=== PATIENT | male | born 1970 | race Caucasian/White ===

== ENCOUNTER 2018-10-09 14:20 | Observation (INO) ==
[2018-10-09] MEDS ORDERED: MORPHINE IV ONE ×2 (14:40→17:33)
[2018-10-09] MEDS ORDERED: ZOFRAN IV ONE (14:40)
[2018-10-09] MEDS ORDERED: ASPIRIN PO ONE ×2 (14:40→14:41)
[2018-10-09] MEDS ORDERED: NITROGLYCERIN TOP ONE (14:40)
[2018-10-09 14:58] LABS: BASO# 0.04 X1000 (0.0-0.2); BASO% 0.5 % (0.0-0.8); EOS# 0.36 X1000 (0.0-0.7); EOS% 4.7 % (0.0-10.0); HEMATOCRIT 44.8 % (42.0-52.0); HEMOGLOBIN 15.8 g/dL (14.0-18.0); IMM GRAN# 0.01 X1000 (0.0-0.04); IMM GRAN% 0.1 % (0.0-0.5); LYMPH# 1.99 X1000 (1.2-3.4); LYMPH% 25.9 % (20.5-51.1); MCH 28.5 PG (27-31); MCHC 35.3 g/dL (33-37); MCV 80.9 FL (81-99); MONO# 0.71 X1000 (0.11-0.59); MONO% 9.3 % (1.7-9.3); MPV 9.9 FL (7.4-10.4); NEUT# 4.56 X1000 (1.4-6.5); NEUT% 59.5 % (42.2-75.2); PLT 238 X1000 (130-400); RBC 5.54 XMIL (4.7-6.1); RDW 12.8 % (11.5-14.5); WBC 7.67 X1000 (4.8-10.8)
[2018-10-09 15:11] LABS: INR 0.96; PROTIME 13.3 Seconds (11.0-16.0)
[2018-10-09 15:21] LABS: AGAP 13; ALBUMIN 4.5 g/dL (3.5-5.0); ALKALINE PHOSPHATASE 114 U/L (32-122); BUN 9 mg/dL (8-22); CALCIUM 9.1 mg/dL (8.8-10.2); CHLORIDE 101 mmol/L (98-107); COSMO 275; ESTIMATED GFR > 60; GLUCOSE 103 mg/dL (70-104); GOT 31 U/L (10-34); SODIUM 138 mmol/L (136-145); TCO2 24 mmol/L (25-35); TOTAL PROTEIN 7.2 g/dL (6.3-8.3)
[2018-10-09 15:22] LABS: GPT 27 U/L (10-44)
[2018-10-09 15:23] LABS: CK PROFILE 238 U/L (24-204)
--- NOTE | 2018-10-09 15:32 | Diag Imaging Result Doc PS360 ---
EXAM: CHEST-PORTABLE HISTORY: CP TECHNIQUE: Portable chest single view COMPARISON: 11/01/2017 FINDINGS: The lungs are well expanded. The heart is not enlarged. The vessels are not distended. There are minimal increased markings in the lower lungs. No effusion identified. IMPRESSION: Atelectasis versus tiny basilar infiltrates Electronically signed by Carlos De Souza 10/09/2018 3:30 PM
[2018-10-09 15:40] LABS: CK-MB 4.67 ng/mL (0.0-5.0)
[2018-10-09] MEDS ORDERED: LOVENOX 1 MG/KG SUBQ ONE (16:01)
--- NOTE | 2018-10-09 16:12 | PROVIDER DOCUMENTATION ---
This chart was entered by Trae Agarwal Scribe, acting as scribe for Andrew Talbot MD. HPI-Chest Pain - General Chief Complaint: Chest Pain Stated Complaint: CP/ARM NUMB X 4 DAYS Time Seen by Provider: 10/09/18 14:27 Source: patient Allergies/Adverse Reactions: Patient Allergies Allergy/AdvReac Type Severity Reaction Status Date / Time No Known Allergies Allergy Verified 02/09/17 22:14 Home Medications: Home Medication List Medication Instructions Recorded Confirmed Last Taken Type Amlodipine Besylate 10 mg PO DAILY 10/10/16 10/10/16 Unknown History Bupropion [Wellbutrin] 300 mg PO DAILY 10/10/16 10/10/16 Unknown History Docusate Sodium [Colace] 100 mg PO DAILY #10 capsule 10/10/16 Unknown Rx Escitalopram [Lexapro] 10 mg PO DAILY 10/10/16 10/10/16 Unknown History Lorazepam 2 mg PO DAILY 10/10/16 10/10/16 Unknown History Magnesium Citrate [Citrate of 300 ml PO ONCE #1 bottle 10/10/16 Unknown Rx Magnesia] Na Phos,M-B/Na Phos,Di-Ba [Fleet 133 ml TN HS PRN PRN #3 enema 10/10/16 Unknown Rx Enema] Hydrocodone/Acetaminophen [[place] 1 each PO Q4-6H PRN PRN #12 tablet 02/09/17 Unknown Rx 5-325 Tablet] - History of Present Illness-CP Nature of Presenting Problem: Pt is a 47 y/o M presents to the ED with having intermittent chest pain the past 3 days. He report the pain worsens with activity and when he rest the pain stops. He describes the pain as sharp with stabbing pain going into his arms. He report he has no energy and headache. Location: reports: substernal Chest Pain Radiation: reports: arms Quality of Pain: reports: sharp, stabbing Severity in ED: mild Onset/Duration: 3 days ago Timing: still present Context/Activities at Onset: reports: none Modifying Factors: improves with: exercise (worsen with activity), rest (improves) Associated Symptoms: reports: fatigue, headache. denies: diaphoresis, edema, heartburn, shortness of breath, vomiting Nitro Today/Relief: no nitro taken today Aspirin Treatment Today: 325 mg x 1, provided by ED Prior Chest Pain/Cardiac Workup: reports: no prior chest pain Similar Symptoms Previously?: No Recently Seen Here or By Another Healthcare Provider: No Review of Systems - Adult - REVIEW OF SYSTEMS - ADULT Constitutional: denies: chills, fatique Eyes: reports: no symptoms reported Ears, Nose, Mouth & Throat: denies: ear pain, throat pain Cardiovascular: reports: chest pain. denies: edema, orthopnea, palpitations Respiratory: denies: cough, shortness of breath, wheezing Gastrointestinal: denies: abdominal pain, nausea, vomiting Genitourinary: denies: dysuria, discharge Musculoskeletal: denies: back pain, neck pain Integumentary: reports: no symptoms reported Neurological: reports: headache/migraines. denies: dizziness/vertigo Psychiatric: reports: no symptoms reported Endocrine: reports: no symptoms reported Hematologic/Lymphatic: reports: no symptoms reported Allergic/Immunologic: reports: no symptoms reported All Other Systems: Reviewed and Negative Past History - Adult - PAST MEDICAL HISTORY-ADULT Review of Records: reports: Old Records Reviewed, Nursing Assessment Review, Medications Reviewed Major Childhood Illnesses: reports: denies history Cardiovascular: reports: denies history Respiratory: reports: denies history Gastrointestinal: reports: denies history Obstetrical/Gynecological: reports: denies history Genitourinary: reports: denies history Musculoskeletal: reports: denies history Neurological: reports: denies history Psychiatric: reports: depression Endocrine/Immune: reports: denies history Other Conditions: reports: denies history - PRIOR SURGERIES/PROCEDURES Surgical/Procedure History: reports: reviewed, not pertinent - IMMUNIZATION STATUS Childhood Immunizations: See Nurse Assessment Flu Vaccine: See Nurse Assessment - FAMILY HISTORY Family History: CAD over 55 yo - SOCIAL HISTORY Smoking: non-smoker Living Situation: family Physical Exam-General - PHYSICAL EXAM-ADULT Initial Vital Signs Reviewed: Yes - CONSTITUTIONAL General Appearance: appears well, alert, no apparent distress - EYES Eyes: PERRL/EOMI, pink conjunctivae - HEAD, EARS, NOSE, MOUTH & THROAT HENMT: moist mucous membranes, normal ENT inspection, pharynx normal - NECK Neck: non-tender, full range of motion, supple, normal inspection - RESPIRATORY Respiratory: chest non-tender, lungs clear, normal breath sounds, no pleuratic chest pain, no respiratory distress, no accessory muscle use - CARDIOVASCULAR Cardiovascular: normal peripheral pulses, regular rate, rhythm - GASTROINTESTINAL (ABDOMEN) Abdominal Exam: normal bowel sounds, non tender, soft - MUSCULOSKELETAL Back Exam: normal inspection, no CVA tenderness, no vertebral tenderness Extremity: normal range of motion, non-tender, normal gait, normal inspection - SKIN Integumentary: normal color, normal turgor, warm/dry - NEUROLOGIC Neurologic: grossly normal, no motor/sensory deficits - PSYCHIATRIC Psych/Mental Status: normal mood/affect, normal thought content, normal thought process, oriented x 3 - HEART Score HEART Score: History: Highly Suspicious HEART Score: ECG: Normal HEART Score: Age: 45-65 Years HEART Score: Risk Factors for Atherosclerotic Disease: 1 or 2 Risk Factors HEART Score: Troponin: < or = Normal Limit Total HEART Score:: 4 Progress - PLAN OF CARE/RESULTS Progress/Plan/Lab Results: Vital Signs - 8 hr 10/09/18 14:22 Temperature 98.2 F Pulse Rate 83 Respiratory Rate 16 Blood Pressure 143/079 O2 Sat by Pulse Oximetry 97 Laboratory Results - last 24 hr 10/09/18 10/09/18 10/09/18 14:33 14:33 14:33 WBC 7.67 RBC 5.54 Hgb 15.8 Hct 44.8 MCV 80.9 L MCH 28.5 MCHC 35.3 RDW Std Deviation 12.8 Plt Count 238 MPV 9.9 Immature Gran % (Auto) 0.1 Neut % (Auto) 59.5 Lymph % (Auto) 25.9 [place] % (Auto) 9.3 Eos % (Auto) 4.7 Baso % (Auto) 0.5 Immature Gran # (Auto) 0.01 Neut # (Auto) 4.56 Lymph # (Auto) 1.99 [place] # (Auto) 0.71 H Eos # (Auto) 0.36 Baso # (Auto) 0.04 PT INR D-Dimer, Quantitative Sodium 138 Potassium 4.0 Chloride 101 Carbon Dioxide 24 L Anion Gap 13 BUN 9 Creatinine 1.0 Estimated GFR/1.73 m2 > 60 BUN/Creatinine Ratio 9 Glucose 103 Calculated Osmolality 275 Calcium 9.1 Total Bilirubin 0.40 AST 31 ALT 27 Alkaline Phosphatase 114 Creatine Kinase 238 H Creatine Kinase Index 2.0 CK-MB (CK-2) 4.67 Troponin T Jnv-K-Ormdmhqxpie Pept 21 Total Protein 7.2 Albumin 4.5 Globulin 3.0 Albumin/Globulin Ratio 2.0 05/10/09/18 10/09/18 14:33 14:33 14:33 WBC RBC Hgb Hct MCV MCH MCHC RDW Std Deviation Plt Count MPV Immature Gran % (Auto) Neut % (Auto) Lymph % (Auto) [place] % (Auto) Eos % (Auto) Baso % (Auto) Immature Gran # (Auto) Neut # (Auto) Lymph # (Auto) [place] # (Auto) Eos # (Auto) Baso # (Auto) PT 13.3 INR 0.96 D-Dimer, Quantitative 0.69 H Sodium Potassium Chloride Carbon Dioxide Anion Gap BUN Creatinine Estimated GFR/1.73 m2 BUN/Creatinine Ratio Glucose Calculated Osmolality Calcium Total Bilirubin AST ALT Alkaline Phosphatase Creatine Kinase Creatine Kinase Index CK-MB (CK-2) Troponin T < 0.010 Uoe-H-Ckuzebjovpe Pept Total Protein Albumin Globulin Albumin/Globulin Ratio Orders Category Date Time Status Nursing- Obtain EKG ONCE Care 10/09/18 15:53 Active Nursing- Obtain EKG once Care 10/09/18 14:39 Active Saline Loc NOW Care 10/09/18 14:39 Active CHEST-PORTABLE [RAD] Stat Exams 10/09/18 14:39 Completed CTA [CT ANGIOGRM PULMONARY ARTERIES] [CT] Stat Exams 10/09/18 15:59 Ordered CBC WITH ELECTRONIC DIFF [HEME] Stat Lab 10/09/18 14:33 Completed CK PROFILE [SP CHEM] Stat Lab 10/09/18 14:33 Completed CK PROFILE [SP CHEM] Timed Lab 10/09/18 16:20 Ordered COMPREHENSIVE METABOLIC PANEL [CHEM] Stat Lab 10/09/18 14:33 Completed D-DIMER [COAG] Stat Lab 10/09/18 14:33 Completed PRO B-NATRIURETIC PEPTIDE Stat Lab 10/09/18 14:33 Completed PROTIME WITH INR [COAG] Stat Lab 10/09/18 14:33 Completed TROPONIN T Stat Lab 10/09/18 14:33 Completed TROPONIN T Timed Lab 10/09/18 16:20 Ordered Aspirin Med 10/09/18 14:40 Discontinued 325 mg PO NOW ONE Aspirin Med 10/09/18 14:41 Discontinued 325 mg PO NOW ONE Enoxaparin 1 mg/kg [Lovenox 1 mg/kg] Med 10/09/18 16:01 Discontinued 1 each SUBQ NOW ONE Morphine Med 10/09/18 14:40 Discontinued 2 mg IV NOW ONE Nitroglycerin Med 10/09/18 14:40 Discontinued 0.5 inch TOP NOW ONE Ondansetron [Zofran] Med 10/09/18 14:40 Discontinued 4 mg IV NOW ONE EKG [EKG] Stat Ther 10/09/18 14:39 Ordered Result Diagrams: 10/09/18 14:33 10/09/18 14:33 - REASSESSMENT Reassessment #1 Time Reassessed: 15:58 Status: unchanged (Had 1 episode of return of chest pain lasting a few seconds. Given ASA, NTP, morphine/zofran) - EKG 1 Time of EKG reading by physician:: 14:28 EKG Read and Signed by:: Andrew Talbot EKG Interpretation (*Must complete 3 of following elements*): Normal Rate: 79 Rhythm: NSR Comments: pt reports he is pain free at the time of EKG 2 Time of EKG reading by physician:: 15:57 EKG Read and Signed by:: Andrew Talbot EKG Interpretation (*Must complete 3 of following elements*): Normal Rate: 77 Rhythm: nsr [place]: normal QRS: normal TN Interval: normal ST Wave: normal Prior EKG Comparison: unchanged from prior - XRAY 1 XRAY Study: Chest Impression: Abnormal, See EMR Report ( EXAM: CHEST-PORTABLE HISTORY: CP TECHNIQUE: Portable chest single view COMPARISON: 11/01/2017 FINDINGS: The lungs are well expanded. The heart is not enlarged. The vessels are not distended. There are minimal increased markings in the lower lungs. No effusion identified. IMPRESSION: Atelectasis versus tiny basilar infiltrates Electronically signed by Carlos De Souza 10/09/2018 3:30 PM 10/09/18 1530 Interpreting Physician: Carlos De Souza MD Dictated Date/Time: 10/09/18 1529 cc: Andrew Talbot MD; Charlette Ocampo MD) - CONSULTS/PCP/HOSPITALIST Notification #1 *Consult/PCP/Hospitalist*: Mckayla paged [phone]- Hospitalist Time Discussed: 16:09 Reason/Comments: admission Consult Disposition: Admit (accepts) Departure - Departure Date of Disposition Decision: 10/09/18 Time of Disposition Decision: 15:59 DIAGNOSIS: Chest pain of uncertain etiology, Unstable angina Disposition: ADMITTED INPATIENT 09 [facility] Medical Emergency: Emergent Condition: Stable Referrals and Follow-Ups: Charlette Ocampo MD [Primary Care Provider] - - Critical Care Note This patient required my direct & personal management of CC.: No Attestation - Physician/ JUSTO Attestation Patient care was provided by Advanced Practice Provider:: No The physician spent face to face time with patient:: Yes Advanced Practice Provider documentation review:: Supervising physician onsite and consulted in the evaluation and care of this patient. The physician did have a face to face encounter with the patient. This chart was documented by the indicated scribe, (Trae Agarwal Scribe) and accurately reflects the services I performed and decisions made by me, Andrew Talbot MD, as attested by the provider's signature.
--- NOTE | 2018-10-09 17:00 | Diag Imaging Result Doc PS360 ---
EXAM: CT ANGIOGRM PULMONARY ARTERIES HISTORY: cp, elevated d-dimer TECHNIQUE: Emergency CT of the chest with intravenous contrast. Pulmonary arterial protocol with MIP images. COMPARISON: 11/01/2017 FINDINGS: There is normal opacification of the pulmonary arteries and their branches. No thoracic aortic aneurysm. No pleural effusions. No cardiomegaly. No enlarged lymph nodes. There are no infiltrates. No bronchiectasis. Limited images through the upper abdomen reveal fatty infiltration of the liver. IMPRESSION: No acute abnormality. This exam was performed using automated exposure control, adjustment of mA or kV according to patient size, and/or use of iterative reconstruction technique. Electronically signed by Carlos De Souza 10/09/2018 4:58 PM
[2018-10-09] MEDS ORDERED: LOVENOX SUBQ ONE (17:15)
--- NOTE | 2018-10-09 18:07 | HISTORY AND PHYSICAL ---
CHIEF COMPLAINT: Was chest pain. This is a 47-year-old male, no major issues except for hypertension who presents with left-sided chest pain for the last several days. No previous heart risk factors now. 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 His pain has been worse for the last 3 days. It worsens with activity, improves with rest. Pain is sharp, sometimes pressure-like and then it radiates into his left arm in the inner aspect of his left arm. Again, no cardiac history in the past. He is also just very tired, fatigued, but he has not been resting well. No pain or swelling in his legs. No fevers or chills. The patient was placed in observation for chest pain. Heart score I am going to give him 1 point there, EKG was negative 0, age is 1 point which is 2, risk factors he has got 1 point so it is 3, troponin is negative so I think his heart score is 3. I would say his story is moderately suspicious I am not sure I would really say highly suspicious but any case he is going to be placed in observation for chest pain. PAST MEDICAL HISTORY: Hypertension alone, depression. PAST SURGICAL HISTORY: Denies. SOCIAL HISTORY: No tobacco or ethanol. He is . He is [employer] employee . ALLERGIES: To no known drug allergies. MEDICATIONS: I do not have his complete medication list but reportedly [place], Lexapro, Ativan and Wellbutrin. REVIEW OF SYSTEMS: Otherwise negative times a 10 point review of systems. PHYSICAL EXAMINATION: VITAL SIGNS: Blood pressure currently 143/79, heart rate 83, respiratory 16, temperature 98.2, 97 percent on room air. GENERAL: Well-developed male in no acute distress. HEENT: Was normocephalic, atraumatic . Pupils equal, round, reactive to light . Sclerae are anicteric. Extraocular movements were intact. He had moist mucous membranes. CARDIOVASCULAR: Regular rate and rhythm. No murmurs, gallops, rubs. PULMONARY: Bilateral breath sounds clear to auscultation. I did not appreciate rales or rhonchi. GI: Soft, nontender, nondistended. Bowel sounds are positive. LABORATORY DATA: White count 7, hemoglobin and hematocrit 15 and 44, platelets 238,000, D-dimer 0.69. Basic was normal. CTA was negative despite a chest x-ray showing a possible infiltrate so I think there is no infiltrate which he does not really have any symptoms thereof. ASSESSMENT: 1. This is a 47-year-old male with mild to moderate risk factors, his father had an myocardial infarction when he was 52 so I would say that is probably a little early. He does have hypertension that is really about it. He does take an aspirin so his CECILIA risk factors are around 2 to 3, heart is about [address] in obs for that purpose. In any case we will get serial enzymes, will pursue echocardiogram, stress is not available, we will attempt to get a Cardiology consult if they would be so gracious and will follow. 2. Hypertension, will update his medications and see if we need to get anything from that perspective. Will check his lipid panel and follow. Continue to monitor closely. cc: Charlette Ocampo
[2018-10-09] MEDS ORDERED: NS 1,000 ML IV ONE (18:16)
[2018-10-09] MEDS ORDERED: ZOFRAN IV PRN (18:16)
[2018-10-09] MEDS ORDERED: TYLENOL PO PRN (18:16)
[2018-10-09 18:54] LABS: AGAP 14; ALBUMIN 3.9 g/dL (3.5-5.0); ALKALINE PHOSPHATASE 95 U/L (32-122); BUN 8 mg/dL (8-22); CALCIUM 8.5 mg/dL (8.8-10.2); CHLORIDE 99 mmol/L (98-107); COSMO 272; CREATININE 0.9 mg/dL (0.7-1.2); ESTIMATED GFR > 60; GLUCOSE 94 mg/dL (70-104); GOT 26 U/L (10-34); GPT 24 U/L (10-44); POTASSIUM 3.8 mmol/L (3.5-5.1); SODIUM 137 mmol/L (136-145); TCO2 24 mmol/L (25-35); TOTAL PROTEIN 6.4 g/dL (6.3-8.3)
[2018-10-09] MEDS: MORPHINE IV PRN (21:38)
--- NOTE | 2018-10-09 22:06 | EKG Report ---
Test Performed on : 10/09/2018 9:41:18 PM Test Reason : cp Blood Pressure : / mmHG Vent. Rate : 064 BPM Atrial Rate : 064 BPM P-R Int : 154 ms QRS Dur : 090 ms QT Int : 420 ms P-R-T Axes : 073 060 060 degrees QTc Int : 433 ms Normal sinus rhythm. Normal ECG When compared with ECG of 09-OCT-2018 15:55, (Unconfirmed) No significant change was found Unconfirmed Result
[2018-10-10] MEDS: MORPHINE IV PRN ×4 (02:26→18:08)
[2018-10-10 07:19] LABS: BASO# 0.02 X1000 (0.0-0.2); BASO% 0.2 % (0.0-0.8); EOS# 0.32 X1000 (0.0-0.7); EOS% 3.4 % (0.0-10.0); HEMATOCRIT 39.9 % (42.0-52.0); HEMOGLOBIN 13.6 g/dL (14.0-18.0); IMM GRAN# 0.01 X1000 (0.0-0.04); IMM GRAN% 0.1 % (0.0-0.5); LYMPH# 1.59 X1000 (1.2-3.4); LYMPH% 16.7 % (20.5-51.1); MCH 28.5 PG (27-31); MCHC 34.1 g/dL (33-37); MCV 83.6 FL (81-99); MONO# 0.84 X1000 (0.11-0.59); MONO% 8.8 % (1.7-9.3); NEUT# 6.74 X1000 (1.4-6.5); NEUT% 70.8 % (42.2-75.2); PLT 215 X1000 (130-400); RBC 4.77 XMIL (4.7-6.1); RDW 12.9 % (11.5-14.5); WBC 9.52 X1000 (4.8-10.8)
[2018-10-10 07:34] LABS: CHOLESTEROL 152 mg/dL (0-200); HDL 39 mg/dL (35-55); LDL 94 mg/dL; TRIGLYCERIDES 93 mg/dL (39-160); VLDL 19 mg/dL
[2018-10-10] MEDS: NORVASC PO SCH (09:22)
[2018-10-10] MEDS: WELLBUTRIN PO SCH (09:22)
[2018-10-10] MEDS ORDERED: G.I. COCKTAIL PO ONE (09:49)
[2018-10-10] MEDS: CARAFATE LIQUID PO SCH ×3 (11:39→21:04)
[2018-10-10] MEDS ORDERED: PNEUMOVAX 23 IM ONE (12:00)
--- NOTE | 2018-10-10 15:09 | PROGRESS NOTE ---
DATE: 10/10/2018 SUBJECTIVE: Patient notes he has had no real changes. Chest pain still present. Still states he is very tired, fatigued, still has no energy. PHYSICAL EXAMINATION: Vital Signs: Temp 98, pulse 67, respiratory rate 18, BP 137/83. General: Patient is awake, currently in no distress. HEENT: Normocephalic. Neck: Supple. Cardiovascular: Regular rate. Chest: Clear. Abdomen: Soft, nondistended. Extremities: Moves all extremities. Neurologic: No changes. ASSESSMENT: 1. Chest pain with very few risk factors. Although his history is equivocal, he is still having pain. His troponins all have been negative thus far. We will keep him in the hospital for a stress test in the a.m. 2. Hypertension. Blood pressure is okay. 3. Depression. Certainly feel as though this may have a small component of his chest pain and fatigue. 4. Nausea and vomiting. 5. Abdominal pain. 6. Myalgias. 7. Paresthesias. 8. We will continue to follow. cc: Chaparro Quintanilla MD
--- NOTE | 2018-10-10 17:51 | CARDIOLOGY CONSULTATION ---
DATE: 10/10/2018 CHIEF COMPLAINT: Chest pain. REQUESTING DOCTOR: Dr. Block for the hospitalist service. PRIMARY SERVICE: PALOMA Crenshaw, here in town. HISTORY: Mr. Haider is 39 years old. He states that he had traveled to [place] about 3 or 4 days ago for business purposes and on his way back to [place], he started developing pain in the left anterior chest. Initially, he thought it was the pectoralis muscle, but then the pain appeared to become deeper, more intense. It was unremitting and decided to come to the emergency room to seek evaluation. In the ER they did a chest x-ray that shows atelectasis versus tiny basilar infiltrates. They did a pulmonary arteriogram that shows no acute abnormality. A 12 lead EKG was done and it shows normal sinus rhythm without any ST or T abnormalities. Thus far, they have done a total of 4 troponin levels beginning at 2:33 p.m. yesterday, October 09, ending at 1 a.m. this morning; all of them are negative. ProBNP level is normal. CKs are also normal. Cholesterol has been checked. LDL is 94, HDL 39, total 152. The patient says that the pain is not as bad as it was. However, he is having a headache. He is not in distress. PAST HISTORY: Positive for hypertension and depression. He does not have diabetes. SURGICAL HISTORY: Negative. SOCIAL HISTORY: He has been to his for 23 years. He does not have children. 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 He does not have a whole lot of time to exercise. He does not smoke or drink. HOME MEDICATIONS: Amlodipine, bupropion, and lorazepam. ALLERGIES: He has no reported allergies. REVIEW OF SYSTEMS: Generally he has been healthy. He has no ongoing complaints up until the onset of the symptoms that led to his admission. Multiple systems were interrogated including cardiopulmonary, gastrointestinal, genitourinary, musculoskeletal, hearing and vision, neurological, psychiatric, immunologic, hematologic, Family History: Both of his parents suffered myocardial infarction. Father had his first myocardial infarction at age 54 and of congestive heart failure at age 72. Mother had her first myocardial infarction at age 60 and of renal failure. PHYSICAL EXAMINATION: Vital signs: Blood pressure is 137/83, temperature 98.1 degrees, pulse 67, respirations 18. General: The patient is awake, alert, oriented, in no distress. Neck: Neck veins are not distended. No cervical bruits. Chest: Clear to auscultation and percussion. Heart: Sounds are regular and rhythmic. I do not hear a gallop or murmur. Abdomen: Nontender, obese. No masses. No hepatomegaly. Extremities: Show very good pulses. No peripheral edema. Neurological: Follows commands. Moves 4 extremities. LABORATORY: Blood work indicates normal BUN and creatinine. Normal electrolytes. Normal liver function tests. His hemoglobin is slightly decreased this morning. His indices, MCV, RDW are normal. White cell count is 9,520. His platelet count is normal. IMPRESSION: 1. Patient who presented with chest pain. This sounds really atypical. 2. Patient has a strong family history of coronary heart disease. That puts him at a higher risk for cardiac events. 3. Hypertension. 4. Obesity, body mass index is 32. 5. Headache: tensional? 6. h/o depression RECOMMENDATION: At this time, I would proceed with a walking Lexiscan myocardial perfusion stress test. We just did an echocardiogram at the bedside; I was present during the study with communications department chairperson Michaela Garrido. The patient demonstrates frequent PACs or enough PACs to probably preclude doing a coronary CTA. The echo showed no wall motion abnormality even in the presence of chest pain which lowers the likelihood for ischemic pain in his case. Further advice will be forthcoming. cc: Puneet Martel MD [facility]
[2018-10-10] MEDS ORDERED: ATIVAN PO SCH (21:00)
--- NOTE | 2018-10-11 03:45 | EKG Report ---
Test Performed on : 10/11/2018 03:37:45 AM Test Reason : chest pain Blood Pressure : / mmHG Vent. Rate : 063 BPM Atrial Rate : 063 BPM P-R Int : 146 ms QRS Dur : 100 ms QT Int : 414 ms P-R-T Axes : 067 053 056 degrees QTc Int : 423 ms Normal sinus rhythm. Normal ECG When compared with ECG of 09-OCT-2018 21:41, (Unconfirmed) No significant change was found Unconfirmed Result
[2018-10-11] MEDS: MORPHINE IV PRN ×2 (03:51→10:04)
[2018-10-11] MEDS: CARAFATE LIQUID PO SCH ×3 (07:15→17:14)
--- NOTE | 2018-10-11 08:21 | Extremity Venous Study ---
EXAM: Venous U/S Bilateral Legs HISTORY: swelling TECHNIQUE: Allison scale, color Doppler, and duplex evaluation was performed. COMPARISON: None. FINDINGS: The deep veins of the bilateral lower extremities demonstrate appropriate compressibility and augmentation. No intraluminal thrombus is visualized. There is no evidence for DVT. The superficial veins appear patent. IMPRESSION: No evidence for deep venous thrombosis bilateral lower extremities. Electronically signed by Leila Gunderson 10/11/2018 8:19 AM
--- NOTE | 2018-10-11 08:34 | EKG Report ---
Test Performed on : 10/09/2018 3:55:09 PM Test Reason : CP Blood Pressure : / mmHG Vent. Rate : 077 BPM Atrial Rate : 077 BPM P-R Int : 150 ms QRS Dur : 084 ms QT Int : 390 ms P-R-T Axes : 051 032 039 degrees QTc Int : 441 ms Normal sinus rhythm. Normal ECG When compared with ECG of 09-OCT-2018 14:28, (Unconfirmed) No significant change was found Unconfirmed Result
--- NOTE | 2018-10-11 08:43 | EKG Report ---
Test Performed on : 10/09/2018 2:28:55 PM Test Reason : CP Blood Pressure : / mmHG Vent. Rate : 079 BPM Atrial Rate : 079 BPM P-R Int : 148 ms QRS Dur : 090 ms QT Int : 374 ms P-R-T Axes : 074 058 051 degrees QTc Int : 428 ms Normal sinus rhythm. Normal ECG When compared with ECG of 01-NOV-2017 14:06, No significant change was found Unconfirmed Result
--- NOTE | 2018-10-11 13:58 | GRADED EXERCISE REPORT ---
DATE: 10/11/2018 PROCEDURE: GXT walking Lexiscan. REQUESTING PHYSICIAN: Puneet Martel MD INDICATION: Chest pain. This is a 47-year-old gentleman coming in for chest pain. I saw him on admission. Baseline EKG really was nonspecific. He did have a T-wave inversion in V1, but otherwise nonspecific. DESCRIPTION OF PROCEDURE: He was walking for about a minute before he had a 0.4 mg Lexiscan that was administered. He continues to ambulate without difficulty. I want to say at about a minute and 4 seconds, he did develop a little bit of chest discomfort, so main consideration would be for positivity for clinical symptomatology, although very mild and quickly resolved. He had no significant ST changes, so therefore, it was felt to be clinically mildly positive, electrically negative. Peak heart rate 108. Peak blood pressure 149/84. Myocardial perfusion will be reported separately. cc: Sanjeev Block MD
[2018-10-11] MEDS: NORVASC PO SCH (14:48)
[2018-10-11] MEDS: WELLBUTRIN PO SCH (14:48)
[2018-10-11 15:40] VITALS: BP 126/91
[2018-10-11] MEDS ORDERED: LEXISCAN ONE (17:09)
--- NOTE | 2018-10-11 17:23 | ECHO REPORT ---
ORDER DATE: 10/10/2018 INDICATION: Chest pain. M-MODE MEASUREMENTS: Difficult to obtain. Left ventricle end diastole: 4.8. Left ventricle end systole: 3.7. Posterior wall: 0.8. Interventricular septum: 1.0. Left atrium: 2.9. Aortic root: 3.3. SUMMARY OF 2-DIMENSIONAL IMAGIN. Left ventricular systolic function is essentially normal. Ejection fraction estimated at 65%. No wall motion abnormality noted. 2. The left atrium appears to be normal. 3. The right ventricle also appears to be normal. 4. The right atrium is unremarkable. 5. The aortic valve is normal. It has 3 cusps. Color flow mapping unremarkable. 6. The mitral valve is normal. Color flow mapping unremarkable. 7. Pulsed wave Doppler of mitral inflow is normal. 8. Tissue Doppler of septal and lateral mitral annulus averages 14 cm. 9. There is no diastolic dysfunction. 10.The tricuspid valve shows no evidence of any significant regurgitation. Pulmonary pressure could not be calculated. 11.The pulmonic valve looks basically normal, and its Doppler pattern is unremarkable. 12.There is no pericardial effusion. No mass, no thrombus. In summary, this echocardiographic study appear to be grossly within normal limits. Clinical correlation recommended. cc: MD Sanjeev Venegas MD
--- NOTE | 2018-10-11 17:36 | Diag Imaging Result Document ---
PROCEDURE NAME: MYOCARDIAL PERF SCAN, STR/REST - 10/11/2018 LEXISCAN SESTAMIBI INTERPRETATION: The the patient was administered 15.7 mCi of technetium-99m sestamibi after which resting cardiac images were obtained. The patient was subsequently stressed using a walking Lexiscan protocol. The patient was administered Lexiscan 0.4 mg intravenously after which the heart rate went from 63 beats per minute to 108 beats per minute, and the blood pressure went from 144/91 to 140/90. With Lexiscan, the patient reported mild chest discomfort. Following the administration of Lexiscan, the patient was administered 44.6 mCi of technetium-99m sestamibi, after which gated stress cardiac images were obtained. Baseline ECG demonstrated sinus rhythm and was within normal limits. With Lexiscan, there were no diagnostic ST-segment changes. SPECT images were reconstructed in the short, horizontal, vertical long axis. Review of these images demonstrated diffuse inhomogeneity on both stress and resting images probably related to patient's obesity. There is [id number] diminished activity in the basal inferolateral region of left ventricle on stress images which appears similar on resting images. No significant reversibility is evident. Gated images demonstrate a calculated left ejection fraction of 74% with symmetrical wall motion/thickening. CONCLUSIONS: 1. Adequate stress achieved with walking Lexiscan protocol. 2. Clinically, the patient reported mild chest discomfort with Lexiscan. 3. Electrocardiographically negative for Lexiscan-induced myocardial ischemia. 4. Lexiscan sestamibi images somewhat technically difficult due to diffuse inhomogeneities in uptake in both stress and resting images likely related to patient's obesity. There is fixed [id number] diminished activity in the basal inferior wall with corresponding preserved regional wall motion probably due to soft tissue attenuation. There is no convincing scintigraphic evidence of inducible myocardial ischemia. Normal left ventricular systolic function demonstrated. cc: MD Puneet Hernandez MD
--- NOTE | 2018-10-15 22:03 | DISCHARGE SUMMARY ---
ADMISSION DATE: 10/09/2018 DISCHARGE DATE: 10/11/2018 DISCHARGE DIAGNOSES: 1. Chest pain, appears resolved. 2. Hypertension. 3. Fatigue. 4. Depression. CONSULTATIONS: None. PROCEDURES: GXT reported as negative. BRIEF HOSPITAL COURSE: The patient is a 47-year-old male who presented to the hospital with chest pain, fatigue, and tiredness. Thankfully, he ruled out for an CO. He did have a stress test which also was negative. On discharge, he was having no further chest pain and therefore he will be discharged home. DISPOSITION: Discussed with patient that most likely his fatigue and tiredness have more to do with his depression than cardiac factors. We will discharge him home. He will follow up outpatient with primary care as well as counseling. cc: Chaparro Quintanilla MD
== END 2018-10-11 18:43 | disposition home or self-care (01) ==
LOC: P.ED 14:20 → SUATTDRO 14:21 → P.MEDSURG 14:21 → INTOOBSV 14:21
PROVIDERS: ATTEND Family Medicine
CPT/HCPCS: 71010; 71045; 71275; 78452; 80053; 80061; 82550; 82553; 83735; 83880; 84443; 84484; 85025; 85379; 85610; 90471; 90732; 93005; 93017; 93306; 93970; 94761; 96374; 96375; 96376; 99285; A9270; A9500; G0009; G0378; J2270; J2405; J2785; J7030; Q9967